=== PATIENT | female | born 1960 | race Caucasian/White ===

== ENCOUNTER 2017-12-10 15:24 | Emergency (ER) | payer OTHER ==
--- NOTE | 2017-12-10 15:43 | ED Physician Chart ---
ED Chief Complaint/HPI - Patient Information Date Seen:: 12/10/17 Time Seen:: 15:30 Chief Complaint:: Cough History of Present Illness:: onset x 2 days of dry cough, fever, and congestion; pt denies LOC, syncope, near -syncope, AMS, ALOC, H/As, visual or gait changes, E/As, S/T, neck pain, C/P, SOB, Abd. 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, EMS Review:: Nurse's Note Reviewed, EMS run form Reviewed ED Review of Systems - Review of Systems General/Constitutional: Fever, No chills, No weight loss, No weakness, No diaphoresis, No edema, No loss of appetite Skin: No skin lesions, No rash, No bruising Head: No headache, No light-headedness Eyes: No loss of vision, No pain, No diplopia ENT: No earache, Nasal drainage, No sore throat, No tinnitus Neck: No neck pain, No swelling, No thyromegaly, No stiffness, No mass noted Cardio Vascular: No chest pain, No palpitations, No PND, No orthopnea, No edema Pulmonary: No SOB, Cough, No sputum, No wheezing GI: No nausea, No vomiting, No diarrhea, No pain, No melena, No hematochezia, No constipation, No hematemesis G/U: No dysuria, No frequency, No hematuria, No nacturia [employer]fdc Technical Architect: No vaginal discharge, No abnormal vaginal bleed, No contraction Musculoskeletal: No bone or joint pain, No back pain, No muscle pain Endocrine: No polyuria, No polydipsia Psychiatric: No prior psych history, No depression, No anxiety, No suicidal ideation, No homicidal ideation, No auditory hallucination, No visual hallucination Hematopoietic: No bruising, No lymphadenopathy Allergic/Immuno: No urticaria, No angioedema Neurological: No syncope, No focal symptoms, No weakness, No paresthesia, No headache, No seizure, No dizziness, No confusion, No vertigo ED Past Medical History - Past Medical History Obtainable: Yes Past Medical History: Dyslipidemia, Thyroid disorder Family History: HTN Social History: Non Smoker, No Alcohol, No Drug Use, Single, Employed Surgical History: other (CTS Surgery) Psychiatricy History: None Medication: Reviewed Family Medical History - Family Member Mother History Unknown: Yes ED Physical Exam - Physical Examination General/Constitutional: Awake, Well-developed, well-nourished, Alert, No distress, GCS 15, Non-toxic appearing, Ambulatory Head: Atraumatic Eyes: Lids, conjuctiva normal, PERRL, EOMI Skin: Nl inspection, No rash, No skin lesions, No ecchymosis, Well hydrated, No lymphadenopathy ENMT: External ears, nose nl, TM canals nl, Nasal exam nl, Lips, teeth, gums nl , Oropharynx nl, Tonsils nl Other ENMT comments:: + Nasal Congestion Neck: Nontender, Full ROM w/o pain, No JVD, No nuchal rigidity, No bruit, No mass, No stridor Other Neck comments:: Supple; no meningeal signs; no cervical tenderness; no bruits Respiratory: Nl effort/Exclusion, Clear to Auscultation, No Wheeze/Rhonchi/Rales Cardio Vascular: RRR, No murmur, gallop, rubs, NL S1 S2, Carotid/Femoral/Distal pulses equal bilaterally GI: No tenderness/rebounding/guarding, No organomegaly, No hernia, Normal BS's, Nondistended, No mass/bruits, No McBurney tenderness Other GI comments:: no pulsatile masses : No CVA tenderness Extremities: No tenderness or effusion, Full ROM, normal strength in all extremities, No edema, Normal digits & nails Neuro/Psych: Alert/oriented, DTR's symmetric, Normal sensory exam, Normal motor strength, Judgement/insight normal, Mood normal, Normal gait, No focal deficits Misc: Normal back, No paraspinal tenderness ED Labs/Radiology/EKG Results - Lab Results Comments:: unremarkable - EKG Interpretations EKG Time:: 16:13 Rate & Rhythm: 79; NSR Comments:: non-specific st-t changes ED Septic Shock - . Is Septic Shock (SBP<90, OR Lactate>4 mmol\L) present?: No ED Reassessment (Disposition) - Reassessment Reassessment:: pt tolerated po fluids well in ER; pt is asymptomatic upon discharge Reassessment Condition:: Improved - Diagnosis Diagnosis:: Cough; Congestion; Fever; Bronchitis; Sinusitis; URI; Vaso-Vagal Reaction; Viral Syndrome; URI - Aftercare/Follow up Instructions Aftercare/Follow-Up Instructions:: Counseled pt regarding lab results/diagnosis & need follow up, Refer to Discharge Instructions, Counseled pt & family regarding lab results/diagnosis & need follow up Medication Prescribed:: Rx: Amoxicillin 500mg po tid x 10 days; take medications as prescribed; Cool Mist Vaporizer - Patient Disposition Discharge/Transfer:: Home Condition at Disposition:: Stable, Improved (RTER prn if existing s/s reoccur and/or get worse and/or any other new s/s occur; ACIs given for all Dx; Refer to Distribution Center Administrator MATTY; F/U withv PMD in one day or prn; RTER prn if concerned) ED Discharge Plan - Patient Disposition Prescriptions: Amoxicillin [Amoxicillin*] 500 mg PO TID #30 tab Instructions: Vasovagal Syncope, Adult Additional Instructions: Pls follow up with Husain in 1-2 days.
[2017-12-10 16:18] LABS: % BASOPHILS 0.8 % (0.0-2.0); % EOSINOPHILS 0.8 % (0.0-5.0); % LYMPHOCYTES 30.5 % (20.0-50.0); % MONOCYTES 9.4 % (2.0-10.0); % NEUTROPHILS 58.5 % (40.0-80.0); HEMATOCRIT 38.4 % (41.0-60); HEMOGLOBIN 12.9 gm/dL (12-16); LYMPHOCYTE ABSOLUTE 1.7 Th/cmm (1.5-3.0); MEAN CELL VOLUME 100.1 fl (81-100); MEAN CORPUSCULAR HEMOGLOBIN 33.7 pg (27.0-31.0); MEAN CORPUSCULAR HGB CONC 33.7 pg (28.0-36.0); MEAN PLATELET VOLUME 7.5 fl; MONOCYTE ABSOLUTE 0.5 Th/cmm (0.3-1.0); NEUTROPHILE ABSOLUTE 3.4 Th/cmm (1.8-8.0); PLATELET COUNT 287 Th/cmm (150-400); RED BLOOD COUNT 3.84 Mil/cmm (3.80-5.10); WHITE BLOOD COUNT 5.6 Th/cmm (4.8-10.8)
[2017-12-10 16:33] LABS: INR 1.04 (0.5-1.4); PROTHROMBIN TIME (TEST) 10.8 SECONDS (9.5-11.5)
[2017-12-10 17:00] LABS: ALB/GLOB RATIO 1.3 (1.0-1.8); ALBUMIN 3.9 gm/dL (3.7-5.3); ALKALINE PHOSPHATASE 65 U/L (34-104); ANION GAP 10.7 (7.0-16.0); BILIRUBIN,TOTAL 0.5 mg/dL (0.3-1.0); BUN - UREA NITROGEN 10 mg/dL (7-25); CALCIUM SERUM 8.8 mg/dL (8.6-10.3); CARBON DIOXIDE 27.9 mEq/L (21.0-31.0); CHLORIDE 101 mEq/L (98-107); CHOLESTEROL 112 mg/dL (<200); CREATININE - SERUM 0.7 mg/dL (0.6-1.2); CREATININE KINASE 82 U/L (30-223); GFR AFRICAN-AMERICAN > 60.0 ml/min (>90); GFR NON AFRICAN-AMERICAN > 60.0 ml/min; GLUCOSE 124 mg/dL (70-105); HDL -HIGH DENSITY LIPOPROTEIN 59 mg/dL (23-92); POTASSIUM SERUM 3.6 mEq/L (3.5-5.1); SGOT 23 U/L (13-39); SGPT/ALT 19 U/L (7-52); SODIUM SERUM 136 mEq/L (136-145); TRIGLYCERIDES 47 mg/dL (<150)
== END 2017-12-10 17:35 | disposition home or self-care (01) ==
LOC: ER 15:24
DX: J40 Bronchitis, not specified as acute or chronic (principal); J06.9 Acute upper respiratory infection, unspecified; J32.9 Chronic sinusitis, unspecified; E78.5 Hyperlipidemia, unspecified; E07.9 Disorder of thyroid, unspecified
CPT/HCPCS: 36415-UA; 80053-TC; 80061-TC; 82550-TC; 83880-TC; 84484-TC; 84703-TC; 85025-TC; 85610-TC; 93005; 94760